=== PATIENT | female | born 1935 | race Caucasian/White ===

== ENCOUNTER 2021-04-20 13:53 | Outpatient (CLI) | payer MEDICARE, MEDICAID | END 2021-04-20 13:54 | disposition home or self-care (01) | LOC: BICMAMMO 13:53 | PROVIDERS: ATTEND Family Medicine | DX: Z13.820 Encounter for screening for osteoporosis (principal); N95.9 Unspecified menopausal and perimenopausal disorder; M81.0 Age-related osteoporosis without current pathological fracture | CPT/HCPCS: 77080 ==

== ENCOUNTER 2022-09-18 07:47 | Outpatient (CLI) | payer OTHER, MEDICAID | END 2022-09-18 07:48 | disposition home or self-care (01) | LOC: BICMAMMO 07:47 | PROVIDERS: ATTEND Family Medicine | DX: M81.0 Age-related osteoporosis without current pathological fracture (principal); M85.851 Other specified disorders of bone density and structure, right thigh; M85.852 Other specified disorders of bone density and structure, left thigh | CPT/HCPCS: 77080 ==

== ENCOUNTER 2023-08-28 13:57 | Outpatient (CLI) | payer OTHER, MEDICAID | END 2023-08-28 13:58 | disposition home or self-care (01) | LOC: BICRAD 13:57 | PROVIDERS: ATTEND Family Medicine | DX: M25.561 Pain in right knee (principal); M17.11 Unilateral primary osteoarthritis, right knee | CPT/HCPCS: 36415; 83520; 86038; 86140; 86200; 86225 ==